=== PATIENT | male | born 1975 | race Caucasian/White ===

== ENCOUNTER 2021-05-13 17:17 | Inpatient (IN) | payer OTHER ==
[~2021-05-13] VITALS: Ht 188 cm; Wt 129.7 kg
--- NOTE | 2021-05-13 17:26 | NUR ---
ARRIVAL PT AMBULATED TO ED 4 ON OWN ACCORD, SEVERE RIGHT BACK PAIN NOTED, PT UNABLE TO VOID, C/O SEVERE PAIN RIGHT FLANK PAIN, PT ROLLING AROUND IN THE BED IN PAIN, C/O NAUSEA, DR ELIAS NOTIFED OF ARRIVAL, NEW ORDERS RECEIVED, IV STARTED AND LABS DRAWN
[2021-05-13] MEDS ORDERED: TORADOL ONE ×2 (17:40→17:41)
[2021-05-13] MEDS ORDERED: ZOFRAN ONE (17:40)
[2021-05-13] MEDS ORDERED: MORPHINE SULFATE ONE (17:41)
[2021-05-13 17:54] VITALS: BP_SYST 149; BP_SYST 159; BP_DIAS 115
[2021-05-13] MEDS ORDERED: TORADOL IV STA (17:55)
[2021-05-13] MEDS ORDERED: MORPHINE SULFATE IV STA (17:55)
[2021-05-13] MEDS ORDERED: ZOFRAN IV STA (17:55)
[2021-05-13 17:58] LABS: BASOPHIL # 0.1 10^3/uL (0.0-0.1); BASOPHIL % 0.4 % (0.0-0.2); EOSINOPHIL # 0.2 10^3/uL (0.0-0.2); EOSINOPHIL % 0.9 % (0.0-5.0); LYMPHOCYTES # 2.44 10^3/uL1 (1.0-4.8); LYMPHOCYTES % 15.3 % (24.0-44.0); MEAN CORP HGB 31.1 pg (26-34); MONOCYTES # 1.1 10^3/uL (0.3-0.8); NEUTROPHIL # 12.2 10^3/uL (1.8-7.7); PLATELET COUNT 393 10^3/uL (150-400); RED CELL DISTRIBUTION WIDTH 12.9 % (11.5-14.5)
[2021-05-13] MEDS ORDERED: NS 1000ML 1,000 ML IV ONE (18:00)
[2021-05-13] MEDS ORDERED: NS 1000ML 1,000 ML ONE (18:06)
--- NOTE | 2021-05-13 18:08 | DIREP ---
PROCEDURE:CHEST 1 VIEW COMPARISON:[facility], CR, XRAY CHEST 2 VWS, 01/16/2021, 11:41 AM. INDICATIONS:cp FINDINGS: LUNGS/PLEURA:No significant pulmonary parenchymal abnormalities. No effusions. VASCULATURE:Normal. Unremarkable pulmonary vasculature. CARDIAC:Normal. No cardiac silhouette abnormality or cardiomegaly. MEDIASTINUM:Normal. No visible mass or adenopathy. BONES:Lower cervical fusion hardware OTHER:Negative. CONCLUSION:No acute disease. Dictated by: Colton Malik MD on 05/13/2021 at 06:05 PM
[2021-05-13] MEDS ORDERED: DILAUDID ONE ×2 (18:10→19:35)
[2021-05-13 18:15] LABS: CALCIUM 9.5 mg/dL (8.4-10.5); CARBON DIOXIDE 28.3 mmol/L (20.0-32)
[2021-05-13 18:18] VITALS: BP 156/99
--- NOTE | 2021-05-13 18:22 | ER.PDOC ---
General Chief Complaint: Male Stated Complaint: BACK/ABD PAIN/MALE Time seen by MD: 18:00 Source: patient Exam Limitations: no limitations History of Present Illness Timing/Duration: 4-6 hours Severity/Quality: severe Radiation: RLQ, groin Associated Symptoms: back pain Exacerbated by: nothing Relieved By: nothing Allergies: Coded Allergies: bee venom protein (honey bee) (Verified Allergy, Severe, Swelling, 05/13/21) allergic to wasp sting Home Meds Active Scripts [Acetaminophen With Codeine] 1 EACH TABLET No Conflict Check, 1 EACH PO Q6H PRN for PAIN 4 - 6 for 5 Days, #20 Prov:SHAI TROTTER SENIOR FRONT END ENGINEER 05/16/21 Cefdinir (CEFDINIR) 300 Mg Capsule, 1 CAP PO BID, #20 CAP Prov:SHAI TROTTER SENIOR FRONT END ENGINEER 05/16/21 Vital Signs First Vital Signs Date Time Temp Pulse Resp B/P (MAP) Pulse Ox O2 Delivery O2 Flow Rate FiO2 05/13/21 17:54 98.0 58 22 100 05/13/21 17:54 159/115 (130) Room Air Last Vital Signs Date Time Temp Pulse Resp B/P (MAP) Pulse Ox O2 Delivery O2 Flow Rate FiO2 05/13/21 18:18 98.0 67 22 156/99 (118) 94 Room Air Past Medical History Medical History: other Surgical History: appendectomy Social History Alcohol Use: none Drug Use: none Reviewed Nursing Reviewed: Vital Signs, Abn. Noted All Other Systems: Reviewed and Negative Physical Exam General Appearance: No Apparent Distress, WD/WN HEENT: PERRL/EOMI, Normal ENT Inspection, TMs Normal, Pharynx Normal Neck: Non-Tender, Full Range of Motion, Supple, Normal Inspection Respiratory: chest non-tender, lungs clear, normal breath sounds, no respiratory distress, no accessory muscle use Cardiovascular: Normal Peripheral Pulses, Regular Rate, Rhythm, No Edema, No G allop, No JVD, No Murmur 1 - tender Male Genitalia: Normal Genitalia, Normal Prostate, No Hernia Back: CVA Tenderness (R) Extremities: Normal Range of Motion, Non-Tender, Normal Inspection, No Pedal Edema, No Calf Tenderness, Normal Capillary Refill, Pelvis Stable Neurologic/Psychiatric: chief informatics officer II-XII NML as Tested, No Motor/Sensory Deficits, Alert, Normal Mood/Affect, Oriented x 3 Skin: Normal Color, Warm/Dry Lymphatic: No Adenopathy Results/Orders Results/Orders Orders - GUEVARA ELIAS MD Cbc With Auto Diff (05/13/21 17:44) Comprehensive Metabolic Panel (05/13/21 17:44) Amylase (05/13/21 17:44) Lipase (05/13/21 17:44) Helicobacter Pylori (05/13/21 17:44) PT (05/13/21 17:44) Partial Thromboplastin Time. (05/13/21 17:44) Urinalysis (05/13/21 17:44) Saline Lock (05/13/21 17:44) Ct Abd/Pelvis Wo Iv Contrast (05/13/21 17:44) Xr Chest 1v (05/13/21 17:44) Ketorolac Tromethamine (Toradol) (05/13/21 17:55) Morphine Sulfate (Morphine Sulfate) (05/13/21 17:55) Ondansetron Hcl/Pf (Zofran) (05/13/21 17:55) 0.9 % Sodium Chloride (Ns 1000ml) (05/13/21 18:00) 0.9 % Sodium Chloride (Ns 1000ml) (05/13/21 18:06) Hydromorphone Hcl (Dilaudid) (05/13/21 18:10) Hydromorphone Hcl (Dilaudid) (05/13/21 18:23) Ceftriaxone Sodium (Rocephin) (05/13/21 19:30) Admit Orders (05/13/21 19:08) Bedrest With Brp (05/13/21 19:08) Scd's While In Bed (05/13/21 19:08) Hydromorphone Hcl (Dilaudid) (05/13/21 19:35) 0.9 % Sodium Chloride (Ns 100ml) (05/13/21 19:48) Ceftriaxone Sodium (Rocephin) (05/13/21 19:48) Vital Signs Date Time Temp Pulse Resp B/P (MAP) Pulse Ox O2 Delivery O2 Flow Rate FiO2 05/13/21 18:18 98.0 67 22 156/99 (118) 94 Room Air 05/13/21 17:54 98.0 58 22 159/115 (130) 100 Room Air 05/13/21 17:54 98.0 58 22 05/13/21 17:54 98.0 58 22 100 Laboratory Tests Test 05/13/21 17:26 05/13/21 17:40 Urine Collection Type UNKNOWN Urine Color YELLOW Urine Appearance CLEAR Urine Bilirubin NEGATIVE (NEGATIVE) Urine Ketones NEGATIVE (NEGATIVE) Urine Specific [place] >=1.030 (1.005-1.030) Urine pH 5.5 (4.5-8.0) Urine Protein 30 mg/dL (NEGATIVE) H Urine Urobilinogen 0.2 E.U./dL (0.2) Urine Nitrate NEGATIVE (NEGATIVE) Urine Leukocyte Esterase NEGATIVE (NEGATIVE) Urine Glucose (Auto)(UA) NEGATIVE (NEGATIVE) Urine Blood TRACE-INTACT (NEGATIVE) H Urine RBC 0-2 RBC/HPF (NONE SEEN) Urine WBC 0-2 WBC/HPF (0-2) Urine Squamous Epithelial Cells FEW #/HPF (FEW) Urine Bacteria FEW (NONE SEEN) H Urine Comment COMMENT: White Blood Count 16.0 10^3/uL (4.5-11.0) H Red Blood Count 5.31 10^6/uL (4.50-5.90) Hemoglobin 16.5 g/dL (13.9-16.3) H Hematocrit 48.6 % (37.0-53.0) Mean Corpuscular Volume 91.5 fL (78-100) Mean Corpuscular Hemoglobin 31.1 pg (26-34) Mean Corpuscular Hemoglobin Concent 34.0 g/dL (33-36.5) Red Cell Distribution Width 12.9 % (11.5-14.5) Platelet Count 393 10^3/uL (150-400) Mean Platelet Volume 8.8 fL (7.8-11.0) Neutrophils (%) (Auto) 76.0 % (41.0-85.0) Lymphocytes (%) (Auto) 15.3 % (24.0-44.0) L Monocytes (%) (Auto) 7.0 % (5.0-12.0) Neutrophils # (Auto) 12.2 10^3/uL (1.8-7.7) H Lymphocytes # (Auto) 2.44 10^3/uL1 (1.0-4.8) Monocytes # (Auto) 1.1 10^3/uL (0.3-0.8) H Absolute Immature Granulocyte (auto 0.06 10^3 u/L (0-2) Absolute Eosinophils (auto) 0.2 10^3/uL (0.0-0.2) Immature Granulocytes % 0.40 % (0.00-0.50) Eosinophils % 0.9 % (0.0-5.0) Basophils % 0.4 % (0.0-0.2) H Basophils # 0.1 10^3/uL (0.0-0.1) Prothrombin Time 10.9 SEC (9.6-12.0) Prothrombin Time INR (Non-Therap) 1.0 Activated Partial Thromboplast Time 27.2 SEC (24.67-30.72) Sodium Level 137 mmol/L (132-145) Potassium Level 3.9 mmol/L (3.6-5.2) Chloride Level 100.0 mmol/L (96-109) Carbon Dioxide Level 28.3 mmol/L (20.0-32) Anion Gap 12.6 Blood Urea Nitrogen 17 mg/dL (7-18) Creatinine 1.64 mg/dL (0.59-1.40) H Estimated GFR () 55.8 (>/=60) Est GFR (CKD-EPI)(Non-Afr Croatian) 46.1 (>/=60) BUN/Creatinine Ratio 10.0 Glucose Level 176 mg/dL (70-110) H Calcium Level 9.5 mg/dL (8.4-10.5) Total Bilirubin 0.5 mg/dL (0.2-1.0) Aspartate Amino Transferase (AST) 36 U/L (0-35) H Alanine Aminotransferase (ALT) 79 U/L (12-78) H Alkaline Phosphatase 114 U/L (50-136) Total Protein 8.6 g/dL (6.4-8.2) H Albumin 4.6 g/dL (3.4-5.0) Globulin 4.0 Albumin/Globulin Ratio 1.150 Amylase Level 58 U/L (25-115) Lipase 67 U/L (114-286) L Helicobacter pylori Screen POSITIVE (NEGATIVE) Microbiology Date/Time Source Procedure Growth Status 05/13/21 17:26 Urine Unknown Urine Culture - Final Complete Progress Progress to dr horn ER DEPART Departure Time of Disposition: 19:00 Disposition: 09 ADMITTED INPATIENT Impression: Primary Impression: Calculus of ureter Condition: Improved Referrals: PCP,UNKNOWN (PCP) PRIMARY CARE PROVIDER Scripts [Acetaminophen With Codeine] 1 EACH TABLET No Conflict Check 1 EACH PO Q6H PRN for PAIN 4 - 6 for 5 Days, #20 Prov: SHAI TROTTER NP 05/16/21 Cefdinir (CEFDINIR) 300 Mg Capsule 1 CAP PO BID, #20 CAP Prov: SHAI TROTTER NP 05/16/21 Duration or Time Spent with Pa: GUEVARA CASTILLO MD May 13, 2021 18:22
[2021-05-13] MEDS ORDERED: DILAUDID IV STA (18:23)
--- NOTE | 2021-05-13 18:23 | NUR ---
CT TO CT
--- NOTE | 2021-05-13 18:53 | DIREP ---
PROCEDURE:CT ABDOMEN/PELVIS W/O CONTRAST COMPARISON:None. INDICATIONS:r flanking TECHNIQUE:Axial images were created through the abdomen and pelvis without intravenous contrast material. No oral contrast was administered. Sagittal and coronal reconstructions were performed from source images. FINDINGS: LUNG BASES:Atelectatic changes at the lung bases. LIVER:Normal. No significant liver lesions are identified. BILIARY:Several gallstones in the lumen of the gallbladder without evidence for gallbladder wall thickening or pericholecystic fluid. PANCREAS:Normal. No lesion, fluid collection, ductal dilatation, or atrophy. SPLEEN:Normal. No enlargement or focal lesion. ADRENALS:Normal. No mass or enlargement. URINARY TRACT:There is an obstructing 0.8 x 0.4 cm calculus in the left mid pelvic ureter best seen on image 85 of series 2. There is mild right-sided hydronephrosis and hydroureter. Multiple bilateral renal calculi are seen measuring up to 4 mm in size. AORTA/VASCULAR:Normal. No aneurysm. RETROPERITONEUM:Normal. No mass or adenopathy. BOWEL/MESENTERY:The appendix is not visualized. There is no intestinal obstruction, free fluid, free air or mesenteric inflammatory changes. ABDOMINAL WALL:Normal. No mass or hernia. PELVIC ORGANS:Normal. No visible mass. Pelvic organs appropriate for patient age. BONES:Normal for age. No bony lesion or acute fracture. OTHER:Negative. CONCLUSION: 1. Obstructing 8 x 4 mm calculus in the right mid pelvic ureter best seen on image 85 of series 2 with mild right-sided hydronephrosis. 2. Cholelithiasis. 3. Tiny fat containing periumbilical hernia. Dictated by: Colton Malik MD on 05/13/2021 at 06:45 PM
[2021-05-13] MEDS ORDERED: DILAUDID IV PRN ×2 (19:30→22:30)
[2021-05-13] MEDS ORDERED: ROCEPHIN ONE (19:48)
[2021-05-13] MEDS ORDERED: NS 100ML 100 ML IV ONE (19:48)
[2021-05-13] MEDS: ROCEPHIN 1,000 MG in NS 100ML 100 ML IV SCH (19:58)
[2021-05-13] MEDS: NS 1000ML 1,000 ML IV SCH (20:30)
[2021-05-13 20:34] VITALS: BP 153/98
--- NOTE | 2021-05-13 20:35 | PCM.HP ---
History of Present Illness Reason for Visit: Right flank pain History of Present Illness 45-year-old male with history of kidney stones presenting with severe right flank pain. Work-up in the emergency room patient was found to have large right ureter stone. Also was found to have elevated creatinine. Urologist consulted. Start IV fluids and IV antibiotic. Patient is being admitted hospital for further management. Past Medical History Renal/: Other (Kidney stone) Past Surgical History: No pertinent hx Past Social History Alcohol: none Drugs: None Review of Systems Constitutional: No: Fever, Chills Eyes: No: Pain, Vision change ENT: No: Ear pain, Ear discharge Respiratory: No: Cough, Shortness of breath Cardiovascular: No: Chest Pain, Palpitations Gastrointestinal: Nausea Genitourinary: Other Musculoskeletal: No: shoulder pain Skin: No: Lesions, Jaundice Neurological: No: Weakness, Numbness Allergies: Coded Allergies: bee venom protein (honey bee) (Verified Allergy, Severe, Swelling, 05/13/21) allergic to wasp sting VTE VTE Risk Score VTE Risk: Score 0-1 = Low Risk (Aggressive mobilization; early ambulation; no VTE prophylaxis required) Score 2: Moderate Risk (Intermittent/Pneumatic Compression Device OR Lovenox/Heparin/Coumadin) Score 3-4: High Risk (Intermittent/Pneumatic Compression Device AND Lovenox/Heparin/Coumadin) Score > or =5: Highest Risk (Intermittent/Pneumatic Compression Device AND Lovenox/Heparin/Coumadin) Exam Vital Signs Vital Signs Date Time Temp Pulse Resp B/P (MAP) Pulse Ox O2 Delivery O2 Flow Rate FiO2 05/13/21 18:18 98.0 67 22 156/99 (118) 94 Room Air General Appearance: Alert, Oriented X3 HEENT: Atraumatic, PERRLA Respiratory: Clear to auscultation, Normal air movement Cardiovascular: Regular rate, Normal S1, Normal S2 Abdominal: Normal bowel sounds, Soft, Other (Right flank tenderness) Extremities: No clubbing, No cyanosis Skin: No rash, No breakdown Neuro: Normal speech Psych/Mental Status: Mental status NL, Mood NL Assessment/Plan Assessment/Plan Problems: (1) DAMIÁN (acute kidney injury) ICD Code: N17.9 - Acute kidney failure, unspecified SNOMED: 2598757, 86116789 (2) Right ureteral stone ICD Code: N20.1 - Calculus of ureter SNOMED: 30105402 Plan admit NPO after MN Urology consulted IVFs monitor kidney function and urine output Pain management DVT prophylaxis early ambulattion Reconcile home meds ELOS 1 MN if stable and cleared by urology ARIANA ENNIS MD May 13, 2021 20:35
[2021-05-13 21:15] LABS: BILIRUBIN,URINE NEGATIVE (NEGATIVE); UROBILINOGEN,URINE 0.2 E.U./dL (0.2)
[2021-05-13] MEDS: MORPHINE SULFATE SL PRN ×2 (22:13→22:44)
[2021-05-13] MEDS: ZOFRAN IV PRN (23:07)
[2021-05-14] VITALS (11 sets, daily range): BP systolic 142–189; BP diastolic 90–221
[2021-05-14] MEDS ORDERED: MORPHINE SULFATE ONE ×5 (01:21→20:12)
[2021-05-14] MEDS: MORPHINE SULFATE IV PRN ×5 (01:25→20:30)
[2021-05-14] MEDS: NS 1000ML 1,000 ML IV SCH ×3 (04:30→20:30)
[2021-05-14] MEDS: ZOFRAN IV PRN ×2 (05:00→12:01)
--- NOTE | 2021-05-14 06:02 | NUR ---
patient reported pressure pain on right flank and feels like he has been kicked on the testicles. Also painful discomfort at the penis. rates testicular pain at 4/10. Dr. Guerra heating pad applied to flank.
[2021-05-14 06:10] LABS: BASOPHIL # 0.1 10^3/uL (0.0-0.1); BASOPHIL % 0.4 % (0.0-0.2); EOSINOPHIL # 0.1 10^3/uL (0.0-0.2); EOSINOPHIL % 0.8 % (0.0-5.0); LYMPHOCYTES # 2.08 10^3/uL1 (1.0-4.8); LYMPHOCYTES % 15.4 % (24.0-44.0); MEAN CORP HGB 31.8 pg (26-34); MONOCYTES # 1.4 10^3/uL (0.3-0.8); MONOCYTES % 10.1 % (5.0-12.0); NEUTROPHIL # 9.9 10^3/uL (1.8-7.7); NEUTROPHILS % 73.3 % (41.0-85.0); PLATELET COUNT 350 10^3/uL (150-400); RED CELL DISTRIBUTION WIDTH 12.9 % (11.5-14.5)
--- NOTE | 2021-05-14 06:53 | NUR ---
patient is off unit to OR
[2021-05-14] MEDS ORDERED: XYLOCAINE 2% 5ML VIAL ONE (07:02)
[2021-05-14] MEDS ORDERED: TORADOL ONE (07:03)
[2021-05-14] MEDS ORDERED: PHENERGAN ONE (07:03)
[2021-05-14] MEDS ORDERED: DECADRON ONE (07:03)
[2021-05-14] MEDS ORDERED: ROCURONIUM BROMIDE IV ONE (07:03)
[2021-05-14] MEDS ORDERED: SUBLIMAZE ONE (07:03)
[2021-05-14] MEDS ORDERED: QUELICIN ONE (07:03)
[2021-05-14] MEDS ORDERED: ZOFRAN ONE (07:03)
[2021-05-14] MEDS ORDERED: DIPRIVAN IV ONE (07:04)
--- NOTE | 2021-05-14 07:22 | NUR ---
Report received, pt off unit for procedure.
[2021-05-14] MEDS ORDERED: LEVAQUIN 100 ML IV ONE ×2 (07:39→11:00)
[2021-05-14 08:15] LABS: CALCIUM 9.2 mg/dL (8.4-10.5); CARBON DIOXIDE 28.7 mmol/L (20.0-32)
--- NOTE | 2021-05-14 08:33 | OPH ---
DATE OF SURGERY: 05/14/2021 DICTATOR NAME: Terry Gutierrez MD PREOPERATIVE DIAGNOSIS: Large calculus in the right lower ureter. FINAL DIAGNOSIS: Large calculus in the right lower ureter. PROCEDURE PERFORMED: Cystoscopy, right retrograde, right ureteroscopy with stone manipulation and insertion of double-J right ureteral stent. DESCRIPTION OF PROCEDURE: The patient was brought to the cystoscopy room, was put in supine position on the cystoscopy table. After the patient was given a satisfactory and adequate endotracheal general anesthesia, the patient was then placed in the lithotomy position. The genitalia were then prepped and draped aseptically in the usual manner. First, a 23-Khmer cystoscope was inserted per urethra up to the bladder and the bladder was inspected and there was no tumor, no calculi, no ulcerations seen. Both ureteral orifices were normal. Initially the guidewire was tried to be inserted in the right ureteral orifice, but it would not go up because of the mild angulation of the distal ureter. So, at this juncture, the cystoscope was removed and a 7-Khmer semirigid ureteroscope was inserted per urethra up to the bladder was inserted to the right ureteral orifice and was able to change the angle of the orifice and was able to put the Glidewire all the way to the right kidney. After putting the Glidewire, the ureteroscope was then removed from the Glidewire and then reinserted into the right ureteral orifice and there was a stone that was large which was impacted at the right lower ureter. The ureteroscope was then removed and then a 6-Khmer double-J right ureteral stent was inserted through the Glidewire by the means of fluoroscopy all the way to the right renal pelvis and after proper positioning of the right indwelling ureteral stent, the Glidewire was removed and the cystoscope was inserted into the bladder and the bladder was emptied with water. Procedure was then terminated. The instrument was removed. The patient was then awakened, was transferred to the recovery room in stable condition. Terry Gutierrez MD DR: STEFFANIE COWART: [phone] RECEIPT: [id number]
--- NOTE | 2021-05-14 08:36 | CNH ---
DATE OF CONSULTATION: 05/14/2021 DICTATOR NAME: Terry Gutierrez MD This is a 45-year-old white male who was admitted to the hospital last night from the Emergency Room because of severe right flank pain. Noncontrast CT scan revealed an 8 mm stone in the right lower ureter. The patient was examined today. He still has some pain in the right flank with right CVA tenderness. The white count last night was 16,000 plus. Case was discussed. The patient has a history of also kidney stone. Case was discussed with the patient. I am going to do a cystoscopy, right retrograde with stent insertion this morning. Terry Gutirerez MD DR: ALEXA TID: [id number] RECEIPT: [id number]
[2021-05-14] MEDS ORDERED: APRESOLINE IV PRN (09:00)
--- NOTE | 2021-05-14 09:20 | NUR ---
Pt arrived back to unit, resting in bed, drowsy, easily aroused to sound. Pt appears to be in no apparent distress. Safety and comfort measures are in place.
[2021-05-14] MEDS ORDERED: LACTATED RINGERS 1,000 ML IV SCH (09:30)
--- NOTE | 2021-05-14 12:18 | PRM.PN ---
Subjective Subjective Date: May 14, 2021 Time: 07:00 Subjective Still complaining of right flank pain. Review of Systems Constitutional: No: Fever, Chills Eyes: No: Pain, Vision change ENT: No: Ear pain, Ear discharge Respiratory: No: Cough, Shortness of breath Cardiovascular: No: Chest Pain, Palpitations Gastrointestinal: Nausea Genitourinary: Other Musculoskeletal: No: shoulder pain Skin: No: Lesions, Jaundice Neurological: No: Weakness, Numbness Allergies: Coded Allergies: bee venom protein (honey bee) (Verified Allergy, Severe, Swelling, 05/13/21) allergic to wasp sting Objective Vitals and I/O Vital Sign - Last 24 Hours 05/13/21 05/13/21 05/13/21 05/13/21 17:54 17:54 17:54 18:18 Temp 98.0 98.0 98.0 98.0 Pulse 58 58 58 67 Resp B/P (MAP) 159/115 (130) 156/99 (118) Pulse Ox 100 100 94 O2 Delivery Room Air Room Air 05/13/21 05/13/21 05/14/21 05/14/21 20:34 21:59 00:00 00:18 Temp 98.0 98.2 97.9 Pulse 55 81 60 Resp 20 20 19 B/P (MAP) 153/98 (116) 161/101 (121) Pulse Ox 96 97 97 O2 Delivery Room Air Room Air 05/14/21 05/14/21 05/14/21 05/14/21 00:20 06:17 08:20 08:20 Temp 97.8 99.2 Pulse 58 87 Resp 19 16 B/P (MAP) 174/100 (124) 161/114 (130) Pulse Ox 99 100 O2 Delivery Room Air Non-Rebreather O2 Flow Rate 9 05/14/21 05/14/21 05/14/21 05/14/21 08:30 08:40 08:50 08:52 Pulse 75 88 90 91 Resp 16 16 16 16 B/P (MAP) 159/107 (124) 161/111 (128) 189/221 (210) 158/121 (133) Pulse Ox 100 100 100 100 O2 Delivery Non-Rebreather Room Air Room Air Room Air O2 Flow Rate 05/14/21 05/14/21 10:54 11:23 Temp 98.2 Pulse 69 Resp 17 B/P (MAP) 151/93 (112) Pulse Ox 95 O2 Delivery Room Air Intake and Output 05/14/21 07:00 Intake Total 236 ml Balance 236 ml General: Alert, Oriented X3 HEENT: Atraumatic, PERRLA Lungs: Clear to auscultation, Normal air movement Heart: Regular rate, Normal S1, Normal S2 Abdomen: Normal bowel sounds, Soft, Other (Right flank tenderness) Extremities: No clubbing, No cyanosis Neuro: Normal speech Psych/Mental Status: Mental status NL, Mood NL All Results(Lab/Rad) Laboratory Tests Test 05/13/21 17:26 05/13/21 17:40 05/14/21 05:13 Urine Collection Type UNKNOWN Urine Color YELLOW Urine Appearance CLEAR Urine Bilirubin NEGATIVE Urine Ketones NEGATIVE Urine Specific [place] >=1.030 Urine pH 5.5 Urine Protein 30 mg/dL Urine Urobilinogen 0.2 E.U./dL Urine Nitrate NEGATIVE Urine Leukocyte Esterase NEGATIVE Urine Glucose (Auto)(UA) NEGATIVE Urine Blood TRACE-INTACT Urine RBC 0-2 RBC/HPF Urine WBC 0-2 WBC/HPF Urine Squamous Epithelial Cells FEW #/HPF Urine Bacteria FEW Urine Comment COMMENT: White Blood Count 16.0 10^3/uL 13.6 10^3/uL Red Blood Count 5.31 10^6/uL 5.19 10^6/uL Hemoglobin 16.5 g/dL 16.5 g/dL Hematocrit 48.6 % 47.9 % Mean Corpuscular Volume 91.5 fL 92.3 fL Mean Corpuscular Hemoglobin 31.1 pg 31.8 pg Mean Corpuscular Hemoglobin Concent 34.0 g/dL 34.4 g/dL Red Cell Distribution Width 12.9 % 12.9 % Platelet Count 393 10^3/uL 350 10^3/uL Mean Platelet Volume 8.8 fL 9.1 fL Neutrophils (%) (Auto) 76.0 % 73.3 % Lymphocytes (%) (Auto) 15.3 % 15.4 % Monocytes (%) (Auto) 7.0 % 10.1 % Neutrophils # (Auto) 12.2 10^3/uL 9.9 10^3/uL Lymphocytes # (Auto) 2.44 10^3/uL1 2.08 10^3/uL1 Monocytes # (Auto) 1.1 10^3/uL 1.4 10^3/uL Absolute Immature Granulocyte (auto 0.06 10^3 u/L 0.05 10^3 u/L Absolute Eosinophils (auto) 0.2 10^3/uL 0.1 10^3/uL Immature Granulocytes % 0.40 % 0.40 % Eosinophils % 0.9 % 0.8 % Basophils % 0.4 % 0.4 % Basophils # 0.1 10^3/uL 0.1 10^3/uL Prothrombin Time 10.9 SEC Prothrombin Time INR (Non-Therap) 1.0 Activated Partial Thromboplast Time 27.2 SEC Sodium Level 137 mmol/L 137 mmol/L Potassium Level 3.9 mmol/L 4.2 mmol/L Chloride Level 100.0 mmol/L 102.0 mmol/L Carbon Dioxide Level 28.3 mmol/L 28.7 mmol/L Anion Gap 12.6 10.5 Blood Urea Nitrogen 17 mg/dL 18 mg/dL Creatinine 1.64 mg/dL 1.73 mg/dL Estimated GFR () 55.8 52.4 Est GFR (CKD-EPI)(Non-Afr Chilean) 46.1 43.3 BUN/Creatinine Ratio 10.0 10.0 Glucose Level 176 mg/dL 108 mg/dL Calcium Level 9.5 mg/dL 9.2 mg/dL Total Bilirubin 0.5 mg/dL Aspartate Amino Transf (AST/SGOT) 36 U/L Alanine Aminotransferase (ALT/SGPT) 79 U/L Alkaline Phosphatase 114 U/L Total Protein 8.6 g/dL Albumin 4.6 g/dL Globulin 4.0 Albumin/Globulin Ratio 1.150 Amylase Level 58 U/L Lipase 67 U/L Helicobacter pylori Screen POSITIVE Current Medications Medications (Trade) Dose Ordered Sig/Karo Route PRN Reason Start Time Stop Time Status Last Admin Dose Admin Ondansetron HCl (Zofran) 4 mg STK-MED ONCE .ROUTE 05/13/21 17:40 05/13/21 17:41 DC Ketorolac Tromethamine (Toradol) 30 mg STK-MED ONCE .ROUTE 05/13/21 17:40 05/13/21 17:41 DC Morphine Sulfate (Morphine Sulfate) 4 mg STK-MED ONCE .ROUTE 05/13/21 17:41 05/13/21 17:41 DC Ketorolac Tromethamine (Toradol) 30 mg STK-MED ONCE .ROUTE 05/13/21 17:41 05/13/21 17:42 DC Ketorolac Tromethamine (Toradol) 30 mg STAT STAT IV 05/13/21 17:55 05/13/21 17:56 DC 05/13/21 18:04 Morphine Sulfate (Morphine Sulfate) 4 mg STAT STAT IV 05/13/21 17:55 05/13/21 17:56 DC 05/13/21 18:03 Ondansetron HCl (Zofran) 4 mg STAT STAT IV 05/13/21 17:55 05/13/21 17:56 DC 05/13/21 18:05 Sodium Chloride 1,000 ml @ 0 mls/hr Q0M ONCE IV 05/13/21 18:00 05/13/21 18:01 DC 05/13/21 18:05 Sodium Chloride 1,000 ml @ ud STK-MED ONCE .ROUTE 05/13/21 18:06 05/13/21 18:07 DC Hydromorphone HCl (Dilaudid) 2 mg STK-MED ONCE .ROUTE 05/13/21 18:10 05/13/21 18:10 DC Hydromorphone HCl (Dilaudid) 2 mg STAT STAT IV 05/13/21 18:23 05/13/21 18:24 DC 05/13/21 18:25 Ceftriaxone Sodium 1000 mg/ Sodium Chloride 100 ml @ 100 mls/hr Q24HRS IV 05/13/21 19:30 06/12/21 19:29 05/13/21 19:58 Hydromorphone HCl (Dilaudid) 2 mg Q4H PRN IV PAIN 7 - 10 05/13/21 19:30 05/13/21 20:29 DC 05/13/21 19:40 Sodium Chloride 100 ml @ ud STK-MED ONCE IV 05/13/21 19:48 05/13/21 19:48 DC Ceftriaxone Sodium (Rocephin) 1,000 mg STK-MED ONCE .ROUTE 05/13/21 19:48 05/13/21 19:48 DC Morphine Sulfate (Morphine Sulfate) 2 mg Q4H PRN SL PAIN 7 - 10 05/13/21 20:30 06/12/21 20:29 05/13/21 22:13 Sodium Chloride 1,000 ml @ 125 mls/hr Q8H IV 05/13/21 20:30 06/12/21 20:29 05/14/21 04:30 Ondansetron HCl (Zofran) 4 mg Q4H PRN IV NAUSEA / VOMITING 05/13/21 20:30 06/12/21 20:29 05/14/21 12:01 Hydromorphone HCl (Dilaudid) 2 mg STK-MED ONCE .ROUTE 05/13/21 19:35 05/13/21 20:29 DC Hydromorphone HCl (Dilaudid) 1 mg Q4H PRN IV PAIN 7 - 10 05/13/21 22:30 05/13/21 22:45 DC 05/13/21 22:44 Morphine Sulfate (Morphine Sulfate) 4 mg Q4H PRN IV PAIN 7 - 10 05/13/21 22:30 06/12/21 22:29 05/14/21 11:54 Morphine Sulfate (Morphine Sulfate) 2 mg STK-MED ONCE .ROUTE 05/14/21 01:21 05/14/21 01:21 DC Morphine Sulfate (Morphine Sulfate) 2 mg STK-MED ONCE .ROUTE 05/14/21 04:44 05/14/21 04:44 DC Lidocaine HCl (Xylocaine 2% 5ml Vial) 500 mg STK-MED ONCE .ROUTE 05/14/21 07:02 05/14/21 07:03 DC Promethazine HCl (Phenergan) 25 mg STK-MED ONCE .ROUTE 05/14/21 07:03 05/14/21 07:03 DC Ketorolac Tromethamine (Toradol) 30 mg STK-MED ONCE .ROUTE 05/14/21 07:03 05/14/21 07:03 DC Ondansetron HCl (Zofran) 4 mg STK-MED ONCE .ROUTE 05/14/21 07:03 05/14/21 07:03 DC Rocuronium [place] (Rocuronium [place]) 50 mg STK-MED ONCE IV 05/14/21 07:03 05/14/21 07:03 DC Succinylcholine Chloride (Quelicin) 200 mg STK-MED ONCE .ROUTE 05/14/21 07:03 05/14/21 07:04 DC Fentanyl Citrate (Sublimaze) 50 mcg STK-MED ONCE .ROUTE 05/14/21 07:03 05/14/21 07:04 DC Propofol (Diprivan) 200 mg STK-MED ONCE IV 05/14/21 07:04 05/14/21 07:04 DC Levofloxacin/ Dextrose 100 ml @ ud STK-MED ONCE IV 05/14/21 07:39 05/14/21 07:39 DC Hydralazine HCl (Apresoline) 10 mg Q4HR PRN IV HYPERTENSION 05/14/21 09:00 06/13/21 08:59 Levofloxacin/ Dextrose 100 ml @ 100 mls/hr OT ONCE IV 05/14/21 11:00 05/14/21 11:59 DC 05/14/21 07:42 Morphine Sulfate (Morphine Sulfate) 2 mg STK-MED ONCE .ROUTE 05/14/21 11:53 05/14/21 11:53 DC Assessment/Plan Assessment/Plan Assessment/Plan admit NPO after MN Urology consulted IVFs monitor kidney function and urine output Pain management DVT prophylaxis early ambulattion Reconcile home meds ELOS 1 MN if stable and cleared by urology Problems: (1) DAMIÁN (acute kidney injury) ICD Code: N17.9 - Acute kidney failure, unspecified SNOMED: 0134001, 77737014 (2) Right ureteral stone ICD Code: N20.1 - Calculus of ureter SNOMED: 41398086 Plan admit Urologist consulted, for cystoscopy today. Continue IV fluids Continue to monitor kidney function urine output Pain management Antibiotic DVT prophylaxis early ambulation Further management as per urologist ARIANA ENNIS MD May 14, 2021 12:18
--- NOTE | 2021-05-14 12:53 | DIREP ---
PROCEDURE:XRAY UROGRAPHY RETROGRADE COMPARISON:[facility], CT, CT ABD/PELVIS W/O, 05/13/2021, 06:23 PM. INDICATIONS:RT UTEREAL STONE,10cc omni 240 used,7 images,76.49 mGy,147.4 sec fluoro TECHNIQUE:7 intraoperative digital images were obtained. FINDINGS:Fluoroscopic assistance was provided by the radiology department. The right ureteral calculus appears to have been extracted. A right ureteral stent was placed. CONCLUSION: 1. Fluoroscopic assistance provided by the radiology department. Please refer to operative report by Dr. Gutierrez. Dictated by: Arash Bender M.D. on 05/14/2021 at 12:50 PM
[2021-05-14] MEDS: ROCEPHIN 1,000 MG in NS 100ML 100 ML IV SCH (19:47)
[2021-05-15] VITALS (12 sets, daily range): BP systolic 136–188; BP diastolic 75–112
[2021-05-15] MEDS ORDERED: MORPHINE SULFATE ONE ×2 (00:16→05:07)
[2021-05-15] MEDS: ZOFRAN IV PRN (00:25)
[2021-05-15] MEDS: MORPHINE SULFATE IV PRN ×4 (00:34→21:24)
[2021-05-15] MEDS: NS 1000ML 1,000 ML IV SCH ×2 (04:30→07:47)
[2021-05-15 06:18] LABS: BASOPHIL % 0.3 % (0.0-0.2); EOSINOPHIL % 0.2 % (0.0-5.0); LYMPHOCYTES # 3.51 10^3/uL1 (1.0-4.8); LYMPHOCYTES % 22.7 % (24.0-44.0); MEAN CORP HGB 31.7 pg (26-34); MONOCYTES # 1.4 10^3/uL (0.3-0.8); MONOCYTES % 9.1 % (5.0-12.0); NEUTROPHIL # 10.5 10^3/uL (1.8-7.7); NEUTROPHILS % 67.7 % (41.0-85.0); PLATELET COUNT 339 10^3/uL (150-400); RED CELL DISTRIBUTION WIDTH 12.9 % (11.5-14.5)
[2021-05-15] MEDS ORDERED: TORADOL ONE (07:16)
[2021-05-15] MEDS ORDERED: ZOFRAN ONE (07:16)
[2021-05-15] MEDS ORDERED: BRIDION IV ONE (07:16)
[2021-05-15] MEDS ORDERED: DECADRON ONE (07:16)
[2021-05-15] MEDS ORDERED: QUELICIN ONE (07:17)
[2021-05-15] MEDS ORDERED: DIPRIVAN IV ONE (07:17)
[2021-05-15] MEDS ORDERED: EPHEDRINE SULFATE ONE (07:17)
[2021-05-15] MEDS ORDERED: ROCURONIUM BROMIDE IV ONE (07:17)
[2021-05-15] MEDS ORDERED: SUBLIMAZE ONE (07:17)
[2021-05-15] MEDS ORDERED: LEVAQUIN 100 ML IV ONE (08:29)
[2021-05-15] MEDS ORDERED: NS 1000ML 1,000 ML ONE (08:38)
--- NOTE | 2021-05-15 09:48 | OPH ---
DATE OF SURGERY: 05/15/2021 DICTATOR NAME: Terry Gutierrez MD PREOPERATIVE DIAGNOSIS: Calculus, right lower ureter with indwelling stent. FINAL DIAGNOSIS: Calculus, right lower ureter with indwelling stent. PROCEDURE: Right ESWL. DESCRIPTION OF PROCEDURE: The patient was brought to the lithotripsy room, was put in supine on the lithotripsy table. Fluoroscopy was initially performed to visualize the stone. It was noted there is a large calculus in the right lower ureter with indwelling stent. After the patient was given a satisfactory and adequate general anesthesia and after localization of the stone with the use of a fluoroscopy and ultrasound, a right ESWL was then performed to the calculus in the right lower ureter under fluoroscopy. After fragmentation of the stone as noted in the ultrasound, the procedure was terminated. A total of 2500 shockwaves were delivered to the stone in the right lower ureter. After fragmenting of the stones as noted in the ultrasound, the procedure was terminated. The patient was then awakened, was transferred to the recovery room in stable condition. Terry Gutierrez MD DR: CHRISTINA TID: [id number] RECEIPT: [id number]
[2021-05-15] MEDS ORDERED: LACTATED RINGERS 1,000 ML IV SCH (10:00)
[2021-05-15] MEDS ORDERED: ULTRAM PO PRN (10:30)
[2021-05-15] MEDS ORDERED: TYLENOL PO PRN (10:30)
--- NOTE | 2021-05-15 10:40 | PRM.PN ---
Subjective Subjective Date: May 15, 2021 Time: 10:00 Subjective No acute distress noted, status post lithotripsy this a.m. from urology patient just arrived back to the floor.No complaints VTE VTE Risk Total Score: 0 VTE Risk Score VTE Risk: Score 0-1 = Low Risk (Aggressive mobilization; early ambulation; no VTE prophylaxis required) Score 2: Moderate Risk (Intermittent/Pneumatic Compression Device OR Lovenox/Heparin/Coumadin) Score 3-4: High Risk (Intermittent/Pneumatic Compression Device AND Lovenox/Heparin/Coumadin) Score > or =5: Highest Risk (Intermittent/Pneumatic Compression Device AND Lovenox/Heparin/Coumadin) Review of Systems Constitutional: No: Fever, Chills, Sweats, Weakness, Malaise, Other Eyes: No: Pain, Vision change, Conjunctivae inflammation, Eyelid inflammation, Other, Redness ENT: No: Ear pain, Ear discharge, Nose pain, Nose discharge, Nose congestion, Mouth pain, Mouth swelling, Throat pain, Throat swelling, Other Respiratory: No: Cough, Shortness of breath Cardiovascular: No: Chest Pain, Palpitations, Orthopnea, Paroxysmal Noc. Dyspnea, Edema, Lt Headedness, Other Gastrointestinal: Abdominal Pain (Right); No: Nausea Genitourinary: Other (Improved right abdominal/flank pain) Musculoskeletal: No: other, neck pain, shoulder pain, arm pain, back pain, hand pain, leg pain, foot pain Skin: No: Rash, Lesions, Jaundice, Bruising, Other Neurological: No: Weakness, Numbness, Incoordination, Change in speech, Confusion, Seizures, Other Allergies: Coded Allergies: bee venom protein (honey bee) (Verified Allergy, Severe, Swelling, 05/13/21) allergic to wasp sting Objective Vitals and I/O Vital Sign - Last 24 Hours 05/14/21 05/14/21 05/14/21 05/14/21 10:54 11:23 16:21 19:10 Temp 98.2 97.6 Pulse 69 75 Resp 17 18 B/P (MAP) 151/93 (112) 157/104 (121) Pulse Ox 95 97 O2 Delivery Room Air Room Air 05/14/21 05/15/21 05/15/21 05/15/21 20:00 00:01 06:55 09:36 Temp 98.3 97.7 98.3 98.2 Pulse 88 80 76 96 Resp 16 16 16 16 B/P (MAP) 183/107 (132) 147/95 (112) 136/95 (109) 140/106 (117) Pulse Ox 93 94 95 95 O2 Delivery Non-Rebreather O2 Flow Rate 5 05/15/21 05/15/21 05/15/21 05/15/21 09:36 09:41 09:46 09:51 Pulse 88 79 82 Resp 16 16 16 B/P (MAP) 140/106 (117) 136/96 (109) 140/98 (112) Pulse Ox 95 95 95 O2 Delivery Nasal Canula Nasal Canula Nasal Canula O2 Flow Rate 5 2 2 1 05/15/21 05/15/21 05/15/21 05/15/21 09:56 10:01 10:06 10:06 Temp 97.5 Pulse 79 78 80 Resp 16 16 16 B/P (MAP) 145/95 (112) 151/101 (118) 147/100 (116) Pulse Ox 95 95 95 O2 Delivery Nasal [place] Nasal Canula Nasal [place]ula O2 Flow Rate 1 1 1 1 Intake and Output 05/15/21 07:00 Intake Total 1550 ml Output Total 2750 ml Balance -1200 ml General: Alert, Oriented X3 HEENT: Atraumatic, PERRLA Neck: Supple Lungs: Clear to auscultation, Normal air movement Heart: Regular rate, Normal S1, Normal S2 Abdomen: Normal bowel sounds, Soft, Other (Right flank tenderness) Extremities: No clubbing, No cyanosis, No edema Skin: No rashes, No breakdown Neuro: Normal speech, Strength at 5/5 X4 ext, Sensation intact Psych/Mental Status: Mental status NL, Mood NL All Results(Lab/Rad) Laboratory Tests Test 05/13/21 17:26 05/13/21 17:40 05/14/21 05:13 Urine Collection Type UNKNOWN Urine Color YELLOW Urine Appearance CLEAR Urine Bilirubin NEGATIVE Urine Ketones NEGATIVE Urine Specific [place] >=1.030 Urine pH 5.5 Urine Protein 30 mg/dL Urine Urobilinogen 0.2 E.U./dL Urine Nitrate NEGATIVE Urine Leukocyte Esterase NEGATIVE Urine Glucose (Auto)(UA) NEGATIVE Urine Blood TRACE-INTACT Urine RBC 0-2 RBC/HPF Urine WBC 0-2 WBC/HPF Urine Squamous Epithelial Cells FEW #/HPF Urine Bacteria FEW Urine Comment COMMENT: White Blood Count 16.0 10^3/uL 13.6 10^3/uL Red Blood Count 5.31 10^6/uL 5.19 10^6/uL Hemoglobin 16.5 g/dL 16.5 g/dL Hematocrit 48.6 % 47.9 % Mean Corpuscular Volume 91.5 fL 92.3 fL Mean Corpuscular Hemoglobin 31.1 pg 31.8 pg Mean Corpuscular Hemoglobin Concent 34.0 g/dL 34.4 g/dL Red Cell Distribution Width 12.9 % 12.9 % Platelet Count 393 10^3/uL 350 10^3/uL Mean Platelet Volume 8.8 fL 9.1 fL Neutrophils (%) (Auto) 76.0 % 73.3 % Lymphocytes (%) (Auto) 15.3 % 15.4 % Monocytes (%) (Auto) 7.0 % 10.1 % Neutrophils # (Auto) 12.2 10^3/uL 9.9 10^3/uL Lymphocytes # (Auto) 2.44 10^3/uL1 2.08 10^3/uL1 Monocytes # (Auto) 1.1 10^3/uL 1.4 10^3/uL Absolute Immature Granulocyte (auto 0.06 10^3 u/L 0.05 10^3 u/L Absolute Eosinophils (auto) 0.2 10^3/uL 0.1 10^3/uL Immature Granulocytes % 0.40 % 0.40 % Eosinophils % 0.9 % 0.8 % Basophils % 0.4 % 0.4 % Basophils # 0.1 10^3/uL 0.1 10^3/uL Prothrombin Time 10.9 SEC Prothrombin Time INR (Non-Therap) 1.0 Activated Partial Thromboplast Time 27.2 SEC Sodium Level 137 mmol/L 137 mmol/L Potassium Level 3.9 mmol/L 4.2 mmol/L Chloride Level 100.0 mmol/L 102.0 mmol/L Carbon Dioxide Level 28.3 mmol/L 28.7 mmol/L Anion Gap 12.6 10.5 Blood Urea Nitrogen 17 mg/dL 18 mg/dL Creatinine 1.64 mg/dL 1.73 mg/dL Estimated GFR () 55.8 52.4 Est GFR (CKD-EPI)(Non-Afr [place]) 46.1 43.3 BUN/Creatinine Ratio 10.0 10.0 Glucose Level 176 mg/dL 108 mg/dL Calcium Level 9.5 mg/dL 9.2 mg/dL Total Bilirubin 0.5 mg/dL Aspartate Amino Transf (AST/SGOT) 36 U/L Alanine Aminotransferase (ALT/SGPT) 79 U/L Alkaline Phosphatase 114 U/L Total Protein 8.6 g/dL Albumin 4.6 g/dL Globulin 4.0 Albumin/Globulin Ratio 1.150 Amylase Level 58 U/L Lipase 67 U/L Helicobacter pylori Screen POSITIVE Current Medications Medications (Trade) Dose Ordered Sig/Karo Route PRN Reason Start Time Stop Time Status Last Admin Dose Admin Ondansetron HCl (Zofran) 4 mg STK-MED ONCE .ROUTE 05/13/21 17:40 05/13/21 17:41 DC Ketorolac Tromethamine (Toradol) 30 mg STK-MED ONCE .ROUTE 05/13/21 17:40 05/13/21 17:41 DC Morphine Sulfate (Morphine Sulfate) 4 mg STK-MED ONCE .ROUTE 05/13/21 17:41 05/13/21 17:41 DC Ketorolac Tromethamine (Toradol) 30 mg STK-MED ONCE .ROUTE 05/13/21 17:41 05/13/21 17:42 DC Ketorolac Tromethamine (Toradol) 30 mg STAT STAT IV 05/13/21 17:55 05/13/21 17:56 DC 05/13/21 18:04 Morphine Sulfate (Morphine Sulfate) 4 mg STAT STAT IV 05/13/21 17:55 05/13/21 17:56 DC 05/13/21 18:03 Ondansetron HCl (Zofran) 4 mg STAT STAT IV 05/13/21 17:55 05/13/21 17:56 DC 05/13/21 18:05 Sodium Chloride 1,000 ml @ 0 mls/hr Q0M ONCE IV 05/13/21 18:00 05/13/21 18:01 DC 05/13/21 18:05 Sodium Chloride 1,000 ml @ ud STK-MED ONCE .ROUTE 05/13/21 18:06 05/13/21 18:07 DC Hydromorphone HCl (Dilaudid) 2 mg STK-MED ONCE .ROUTE 05/13/21 18:10 05/13/21 18:10 DC Hydromorphone HCl (Dilaudid) 2 mg STAT STAT IV 05/13/21 18:23 05/13/21 18:24 DC 05/13/21 18:25 Ceftriaxone Sodium 1000 mg/ Sodium Chloride 100 ml @ 100 mls/hr Q24HRS IV 05/13/21 19:30 06/12/21 19:29 05/13/21 19:58 Hydromorphone HCl (Dilaudid) 2 mg Q4H PRN IV PAIN 7 - 10 05/13/21 19:30 05/13/21 20:29 DC 05/13/21 19:40 Sodium Chloride 100 ml @ ud STK-MED ONCE IV 05/13/21 19:48 05/13/21 19:48 DC Ceftriaxone Sodium (Rocephin) 1,000 mg STK-MED ONCE .ROUTE 05/13/21 19:48 05/13/21 19:48 DC Morphine Sulfate (Morphine Sulfate) 2 mg Q4H PRN SL PAIN 7 - 10 05/13/21 20:30 06/12/21 20:29 05/13/21 22:13 Sodium Chloride 1,000 ml @ 125 mls/hr Q8H IV 05/13/21 20:30 06/12/21 20:29 05/14/21 04:30 Ondansetron HCl (Zofran) 4 mg Q4H PRN IV NAUSEA / VOMITING 05/13/21 20:30 06/12/21 20:29 05/14/21 12:01 Hydromorphone HCl (Dilaudid) 2 mg STK-MED ONCE .ROUTE 05/13/21 19:35 05/13/21 20:29 DC Hydromorphone HCl (Dilaudid) 1 mg Q4H PRN IV PAIN 7 - 10 05/13/21 22:30 05/13/21 22:45 DC 05/13/21 22:44 Morphine Sulfate (Morphine Sulfate) 4 mg Q4H PRN IV PAIN 7 - 10 05/13/21 22:30 06/12/21 22:29 05/14/21 11:54 Morphine Sulfate (Morphine Sulfate) 2 mg STK-MED ONCE .ROUTE 05/14/21 01:21 05/14/21 01:21 DC Morphine Sulfate (Morphine Sulfate) 2 mg STK-MED ONCE .ROUTE 05/14/21 04:44 05/14/21 04:44 DC Lidocaine HCl (Xylocaine 2% 5ml Vial) 500 mg STK-MED ONCE .ROUTE 05/14/21 07:02 05/14/21 07:03 DC Promethazine HCl (Phenergan) 25 mg STK-MED ONCE .ROUTE 05/14/21 07:03 05/14/21 07:03 DC Ketorolac Tromethamine (Toradol) 30 mg STK-MED ONCE .ROUTE 05/14/21 07:03 05/14/21 07:03 DC Ondansetron HCl (Zofran) 4 mg STK-MED ONCE .ROUTE 05/14/21 07:03 05/14/21 07:03 DC Rocuronium [place] (Rocuronium [place]) 50 mg STK-MED ONCE IV 05/14/21 07:03 05/14/21 07:03 DC Succinylcholine Chloride (Quelicin) 200 mg STK-MED ONCE .ROUTE 05/14/21 07:03 05/14/21 07:04 DC Fentanyl Citrate (Sublimaze) 50 mcg STK-MED ONCE .ROUTE 05/14/21 07:03 05/14/21 07:04 DC Propofol (Diprivan) 200 mg STK-MED ONCE IV 05/14/21 07:04 05/14/21 07:04 DC Levofloxacin/ Dextrose 100 ml @ ud STK-MED ONCE IV 05/14/21 07:39 05/14/21 07:39 DC Hydralazine HCl (Apresoline) 10 mg Q4HR PRN IV HYPERTENSION 05/14/21 09:00 06/13/21 08:59 Levofloxacin/ Dextrose 100 ml @ 100 mls/hr OT ONCE IV 05/14/21 11:00 05/14/21 11:59 DC 05/14/21 07:42 Morphine Sulfate (Morphine Sulfate) 2 mg STK-MED ONCE .ROUTE 05/14/21 11:53 05/14/21 11:53 DC Course Sepsis Screening Results: Posi: NEGATIVE Sepsis Qualifier/Stage: NO DEFINITE RISK Vitals & review Data Vital Sign - Last 24 Hours 05/14/21 05/14/21 05/14/21 05/14/21 10:54 11:23 16:21 19:10 Temp 98.2 97.6 Pulse 69 75 Resp 17 18 B/P (MAP) 151/93 (112) 157/104 (121) Pulse Ox 95 97 O2 Delivery Room Air Room Air 05/14/21 05/15/21 05/15/21 05/15/21 20:00 00:01 06:55 09:36 Temp 98.3 97.7 98.3 98.2 Pulse 88 80 76 96 Resp 16 16 16 16 B/P (MAP) 183/107 (132) 147/95 (112) 136/95 (109) 140/106 (117) Pulse Ox 93 94 95 95 O2 Delivery Non-Rebreather O2 Flow Rate 5 05/15/21 05/15/21 05/15/21 05/15/21 09:36 09:41 09:46 09:51 Pulse 88 79 82 Resp 16 16 16 B/P (MAP) 140/106 (117) 136/96 (109) 140/98 (112) Pulse Ox 95 95 95 O2 Delivery Nasal Canula Nasal Canula Nasal [place] O2 Flow Rate 5 2 2 1 05/15/21 05/15/21 05/15/21 05/15/21 09:56 10:01 10:06 10:06 Temp 97.5 Pulse 79 78 80 Resp 16 16 16 B/P (MAP) 145/95 (112) 151/101 (118) 147/100 (116) Pulse Ox 95 95 95 O2 Delivery Nasal [place] Nasal [place] Nasal [place] O2 Flow Rate 1 1 1 1 Intake and Output 05/15/21 07:00 Intake Total 1550 ml Output Total 2750 ml Balance -1200 ml Laboratory Tests Test 05/13/21 17:26 05/13/21 17:40 05/14/21 05:13 05/15/21 05:30 Urine Collection Type UNKNOWN Urine Color YELLOW Urine Appearance CLEAR Urine Bilirubin NEGATIVE Urine Ketones NEGATIVE Urine Specific [place] >=1.030 Urine pH 5.5 Urine Protein 30 mg/dL Urine Urobilinogen 0.2 E.U./dL Urine Nitrate NEGATIVE Urine Leukocyte Esterase NEGATIVE Urine Glucose (Auto)(UA) NEGATIVE Urine Blood TRACE-INTACT Urine RBC 0-2 RBC/HPF Urine WBC 0-2 WBC/HPF Urine Squamous Epithelial Cells FEW #/HPF Urine Bacteria FEW Urine Comment COMMENT: White Blood Count 16.0 10^3/uL 13.6 10^3/uL 15.5 10^3/uL Red Blood Count 5.31 10^6/uL 5.19 10^6/uL 4.92 10^6/uL Hemoglobin 16.5 g/dL 16.5 g/dL 15.6 g/dL Hematocrit 48.6 % 47.9 % 45.7 % Mean Corpuscular Volume 91.5 fL 92.3 fL 92.9 fL Mean Corpuscular Hemoglobin 31.1 pg 31.8 pg 31.7 pg Mean Corpuscular Hemoglobin Concent 34.0 g/dL 34.4 g/dL 34.1 g/dL Red Cell Distribution Width 12.9 % 12.9 % 12.9 % Platelet Count 393 10^3/uL 350 10^3/uL 339 10^3/uL Mean Platelet Volume 8.8 fL 9.1 fL 8.9 fL Neutrophils (%) (Auto) 76.0 % 73.3 % 67.7 % Lymphocytes (%) (Auto) 15.3 % 15.4 % 22.7 % Monocytes (%) (Auto) 7.0 % 10.1 % 9.1 % Neutrophils # (Auto) 12.2 10^3/uL 9.9 10^3/uL 10.5 10^3/uL Lymphocytes # (Auto) 2.44 10^3/uL1 2.08 10^3/uL1 3.51 10^3/uL1 Monocytes # (Auto) 1.1 10^3/uL 1.4 10^3/uL 1.4 10^3/uL Absolute Immature Granulocyte (auto 0.06 10^3 u/L 0.05 10^3 u/L 0.03 10^3 u/L Absolute Eosinophils (auto) 0.2 10^3/uL 0.1 10^3/uL 0.0 10^3/uL Immature Granulocytes % 0.40 % 0.40 % 0.20 % Eosinophils % 0.9 % 0.8 % 0.2 % Basophils % 0.4 % 0.4 % 0.3 % Basophils # 0.1 10^3/uL 0.1 10^3/uL 0.0 10^3/uL Prothrombin Time 10.9 SEC Prothrombin Time INR (Non-Therap) 1.0 Activated Partial Thromboplast Time 27.2 SEC Sodium Level 137 mmol/L 137 mmol/L Potassium Level 3.9 mmol/L 4.2 mmol/L Chloride Level 100.0 mmol/L 102.0 mmol/L Carbon Dioxide Level 28.3 mmol/L 28.7 mmol/L Anion Gap 12.6 10.5 Blood Urea Nitrogen 17 mg/dL 18 mg/dL Creatinine 1.64 mg/dL 1.73 mg/dL Estimated GFR () 55.8 52.4 Est GFR (CKD-EPI)(Non-Afr [place]) 46.1 43.3 BUN/Creatinine Ratio 10.0 10.0 Glucose Level 176 mg/dL 108 mg/dL Calcium Level 9.5 mg/dL 9.2 mg/dL Total Bilirubin 0.5 mg/dL Aspartate Amino Transf (AST/SGOT) 36 U/L Alanine Aminotransferase (ALT/SGPT) 79 U/L Alkaline Phosphatase 114 U/L Total Protein 8.6 g/dL Albumin 4.6 g/dL Globulin 4.0 Albumin/Globulin Ratio 1.150 Amylase Level 58 U/L Lipase 67 U/L Helicobacter pylori Screen POSITIVE Procalcitonin < 0.05 ng/mL Current Medications Medications (Trade) Dose Ordered Sig/Karo PRN Reason Start Time Stop Time Status Last Admin Ceftriaxone Sodium 1000 mg/ Sodium Chloride 100 ml @ 100 mls/hr Q24HRS 05/13/21 19:30 06/12/21 19:29 05/14/21 19:47 Hydralazine HCl (Apresoline) 10 mg Q4HR PRN HYPERTENSION 05/14/21 09:00 06/13/21 08:59 Morphine Sulfate (Morphine Sulfate) 2 mg Q4H PRN PAIN 7 - 10 05/13/21 20:30 06/12/21 20:29 05/13/21 22:13 Morphine Sulfate (Morphine Sulfate) 4 mg Q4H PRN PAIN 7 - 10 05/13/21 22:30 06/12/21 22:29 05/15/21 05:34 Ondansetron HCl (Zofran) 4 mg Q4H PRN NAUSEA / VOMITING 05/13/21 20:30 06/12/21 20:29 05/15/21 00:25 Sodium Chloride 1,000 ml @ 125 mls/hr Q8H 05/13/21 20:30 06/12/21 20:29 05/14/21 14:45 LEVEL 1 SEPSIS INFECTION CRITE: None/Not assessed LEVEL 2-SIRS (LIST ALL THAT AP: None/Not assessed O2 Sat by Pulse Oximetry: 95 Oxygen Flow Rate: 1 Assessment/Plan Assessment/Plan Assessment/Plan 45-year-old male presented to ED initially with right-sided severe CVA tenderness noncontrast CT revealed a 8 mm stone in the right lower ureter. Consultation to urology for cystoscopy, Stent placed unable to retrieve subsequent lithotripsy this a.m. completed. Trending up leukocytosis as well as mild elevation in creatinine for decrease in renal function continue IV fluid therapy and antimicrobial therapy. Likely DC in a.m. Problems: (1) DAMIÁN (acute kidney injury) Status: Acute Assessment & Plan: Unable to glean any chronic renal data. Increase in creatinine to 1.7 today continue IV fluid therapy avoid nephrotoxic agents continue to monitor renal function. Likely DC in a.m. if renal function trending or normalizing. ICD Code: N17.9 - Acute kidney failure, unspecified SNOMED: 4252372, [id number] (2) Right ureteral stone Status: Acute Assessment & Plan: Consultation to urology much appreciated failed cystoscopy with stent placement and subsequent lithotripsy for disintegration of calculus complete. Continue antimicrobial therapy including ceftriaxone patient did receive 1 dose of Levaquin in the OR. Continue IV fluid therapy continue to monitor okay to utilize full liquid diet. Pain control with p.o. analgesics and IV opioids-morphine. Antiemetics available as needed. Monitor procalcitonin a nd leukocytosis ICD Code: N20.1 - Calculus of ureter SNOMED: 02954316 SHAI TROTTER NP May 15, 2021 10:40
[2021-05-15] MEDS: MORPHINE SULFATE SL PRN (16:45)
[2021-05-15] MEDS ORDERED: TYLENOL #3 PO PRN (18:00)
[2021-05-15] MEDS: ROCEPHIN 1,000 MG in NS 100ML 100 ML IV SCH (20:14)
[2021-05-15] MEDS ORDERED: TRANDATE IV ONE (22:30)
[2021-05-16 00:18] VITALS: BP 163/114
[2021-05-16] MEDS ORDERED: APRESOLINE IV PRN ×2 (00:30)
[2021-05-16] MEDS: MORPHINE SULFATE SL PRN (01:16)
--- NOTE | 2021-05-16 02:11 | NUR ---
PTS BP WAS 188/112 AND 10 MG IV HYDRALAZINE WAS GIVEN. BP WAS REASSESSED 30 MINUTES LATER AND WAS 118/112. DR DOSS WAS NOTIFIED AND AN ORDER FOR LABETALOL 20 MG IV WAS GIVEN. BP WAS REASSESSED AND WAS 160/119. DR DOSS WAS NOTIFIED AND AN ORDER WAS GIVEN TO UP THE 10 MG HYDRALAZINE TO 20 MG HYDRALAZINE AND WHEN BP WAS REASSESSED IT WAS 144/78.
[2021-05-16 04:25] VITALS: BP 111/80
[2021-05-16 07:35] LABS: BASOPHIL # 0.1 10^3/uL (0.0-0.1); BASOPHIL % 0.4 % (0.0-0.2); EOSINOPHIL % 0.3 % (0.0-5.0); LYMPHOCYTES % 27.4 % (24.0-44.0); MEAN CORP HGB 31.9 pg (26-34); MONOCYTES # 1.2 10^3/uL (0.3-0.8); MONOCYTES % 9.4 % (5.0-12.0); NEUTROPHIL # 7.8 10^3/uL (1.8-7.7); NEUTROPHILS % 62.5 % (41.0-85.0); PLATELET COUNT 309 10^3/uL (150-400)
[2021-05-16 07:51] LABS: CALCIUM 8.8 mg/dL (8.4-10.5); CARBON DIOXIDE 28.6 mmol/L (20.0-32)
[2021-05-16 08:09] VITALS: BP 174/107
[2021-05-16 08:11] VITALS: BP 149/110
[2021-05-16 08:16] VITALS: BP 155/96
[2021-05-16] MEDS ORDERED: Acetaminophen With Codeine PO (08:26)
[2021-05-16] MEDS ORDERED: CEFD300C2 PO (08:26)
--- NOTE | 2021-05-16 08:32 | PRM.DC ---
Discharge Summary Date of Discharge: May 16, 2021 Time of Request to Discharge: 08:29 Reason for Visit: Right flank pain Hospital Course 45-year-old male presented to ED initially with right-sided severe CVA tenderness noncontrast CT revealed a 8 mm stone in the right lower ureter. Consultation to urology for cystoscopy, Stent placed unable to retrieve subsequent lithotripsy this a.m. completed. Trending up leukocytosis as well as mild elevation in creatinine for decrease in renal function continue IV fluid therapy and antimicrobial therapy. Likely DC in a.m. Problems: (1) DAMIÁN (acute kidney injury) Status: Acute Assessment & Plan: Unable to glean any chronic renal data. Increase in creatinine to 1.7 today continue IV fluid therapy avoid nephrotoxic agents continue to monitor renal function. Likely DC in a.m. if renal function trending or normalizing. ICD Code: N17.9 - Acute kidney failure, unspecified SNOMED: 8667559, [id number] (2) Right ureteral stone Status: Acute Assessment & Plan: Consultation to urology much appreciated failed cystoscopy with stent placement and subsequent lithotripsy for disintegration of calculus complete. Continue antimicrobial therapy including ceftriaxone patient did receive 1 dose of Levaquin in the OR. Continue IV fluid therapy continue to monitor okay to utilize full liquid diet. Pain control with p.o. analgesics and IV opioids-morphine. Antiemetics available as needed. Monitor procalcitonin and leukocytosis ICD Code: N20.1 - Calculus of ureter SNOMED: 98429520 Additional Comments 45-year-old male with history of kidney stones presenting with severe right flank pain. Work-up in the emergency room patient was found to have large right ureter stone. Also was found to have elevated creatinine. Urologist consulted. Start IV fluids and IV antibiotic. Patient is being admitted hospital for further management. General: Alert, Oriented X3, Cooperative HEENT: Atraumatic, PERRLA, EOMI Neck: Supple, No JVD, No thyromegaly Lungs: Clear to auscultation, Normal air movement Heart: Regular rate, Normal S1, Normal S2 Abdomen: Normal bowel sounds, Soft, No tenderness, Other (rt flank pain) Extremities: No clubbing, No cyanosis, No edema Skin: No rashes, No breakdown Neuro: Normal gait, Normal speech Psych/Mental Status: Mental status NL Scheduled Cefdinir (Cefdinir), 1 CAP PO BID Scheduled PRN [Acetaminophen With Codeine], 1 EACH PO Q6H PRN for PAIN 4 - 6 Sepsis Evaluation @ Discharge Vital Sign - Last 24 Hours 05/14/21 05/14/21 05/14/21 05/14/21 10:54 11:23 16:21 19:10 Temp 98.2 97.6 Pulse 69 75 Resp 17 18 B/P (MAP) 151/93 (112) 157/104 (121) Pulse Ox 95 97 O2 Delivery Room Air Room Air 05/14/21 05/15/21 05/15/21 05/15/21 20:00 00:01 06:55 09:36 Temp 98.3 97.7 98.3 98.2 Pulse 88 80 76 96 Resp 16 16 16 16 B/P (MAP) 183/107 (132) 147/95 (112) 136/95 (109) 140/106 (117) Pulse Ox 93 94 95 95 O2 Delivery Non-Rebreather O2 Flow Rate 5 05/15/21 05/15/21 05/15/21 05/15/21 09:36 09:41 09:46 09:51 Pulse 88 79 82 Resp 16 16 16 B/P (MAP) 140/106 (117) 136/96 (109) 140/98 (112) Pulse Ox 95 95 95 O2 Delivery Nasal Canula Nasal Canula Nasal Canula O2 Flow Rate 5 2 2 1 05/15/21 05/15/21 05/15/21 05/15/21 09:56 10:01 10:06 10:06 Temp 97.5 Pulse 79 78 80 Resp 16 16 16 B/P (MAP) 145/95 (112) 151/101 (118) 147/100 (116) Pulse Ox 95 95 95 O2 Delivery Nasal Canula Nasal Canula Nasal Canula O2 Flow Rate 1 1 1 1 Intake and Output 05/15/21 07:00 Intake Total 1550 ml Output Total 2750 ml Balance -1200 ml Laboratory Tests Test 05/13/21 17:26 05/13/21 17:40 05/14/21 05:13 05/15/21 05:30 Urine Collection Type UNKNOWN Urine Color YELLOW Urine Appearance CLEAR Urine Bilirubin NEGATIVE Urine Ketones NEGATIVE Urine Specific [place] >=1.030 Urine pH 5.5 Urine Protein 30 mg/dL Urine Urobilinogen 0.2 E.U./dL Urine Nitrate NEGATIVE Urine Leukocyte Esterase NEGATIVE Urine Glucose (Auto)(UA) NEGATIVE Urine Blood TRACE-INTACT Urine RBC 0-2 RBC/HPF Urine WBC 0-2 WBC/HPF Urine Squamous Epithelial Cells FEW #/HPF Urine Bacteria FEW Urine Comment COMMENT: White Blood Count 16.0 10^3/uL 13.6 10^3/uL 15.5 10^3/uL Red Blood Count 5.31 10^6/uL 5.19 10^6/uL 4.92 10^6/uL Hemoglobin 16.5 g/dL 16.5 g/dL 15.6 g/dL Hematocrit 48.6 % 47.9 % 45.7 % Mean Corpuscular Volume 91.5 fL 92.3 fL 92.9 fL Mean Corpuscular Hemoglobin 31.1 pg 31.8 pg 31.7 pg Mean Corpuscular Hemoglobin Concent 34.0 g/dL 34.4 g/dL 34.1 g/dL Red Cell Distribution Width 12.9 % 12.9 % 12.9 % Platelet Count 393 10^3/uL 350 10^3/uL 339 10^3/uL Mean Platelet Volume 8.8 fL 9.1 fL 8.9 fL Neutrophils (%) (Auto) 76.0 % 73.3 % 67.7 % Lymphocytes (%) (Auto) 15.3 % 15.4 % 22.7 % Monocytes (%) (Auto) 7.0 % 10.1 % 9.1 % Neutrophils # (Auto) 12.2 10^3/uL 9.9 10^3/uL 10.5 10^3/uL Lymphocytes # (Auto) 2.44 10^3/uL1 2.08 10^3/uL1 3.51 10^3/uL1 Monocytes # (Auto) 1.1 10^3/uL 1.4 10^3/uL 1.4 10^3/uL Absolute Immature Granulocyte (auto 0.06 10^3 u/L 0.05 10^3 u/L 0.03 10^3 u/L Absolute Eosinophils (auto) 0.2 10^3/uL 0.1 10^3/uL 0.0 10^3/uL Immature Granulocytes % 0.40 % 0.40 % 0.20 % Eosinophils % 0.9 % 0.8 % 0.2 % Basophils % 0.4 % 0.4 % 0.3 % Basophils # 0.1 10^3/uL 0.1 10^3/uL 0.0 10^3/uL Prothrombin Time 10.9 SEC Prothrombin Time INR (Non-Therap) 1.0 Activated Partial Thromboplast Time 27.2 SEC Sodium Level 137 mmol/L 137 mmol/L Potassium Level 3.9 mmol/L 4.2 mmol/L Chloride Level 100.0 mmol/L 102.0 mmol/L Carbon Dioxide Level 28.3 mmol/L 28.7 mmol/L Anion Gap 12.6 10.5 Blood Urea Nitrogen 17 mg/dL 18 mg/dL Creatinine 1.64 mg/dL 1.73 mg/dL Estimated GFR () 55.8 52.4 Est GFR (CKD-EPI)(Non-Afr Somali) 46.1 43.3 BUN/Creatinine Ratio 10.0 10.0 Glucose Level 176 mg/dL 108 mg/dL Calcium Level 9.5 mg/dL 9.2 mg/dL Total Bilirubin 0.5 mg/dL Aspartate Amino Transf (AST/SGOT) 36 U/L Alanine Aminotransferase (ALT/SGPT) 79 U/L Alkaline Phosphatase 114 U/L Total Protein 8.6 g/dL Albumin 4.6 g/dL Globulin 4.0 Albumin/Globulin Ratio 1.150 Amylase Level 58 U/L Lipase 67 U/L Helicobacter pylori Screen POSITIVE Procalcitonin < 0.05 ng/mL Current Medications Medications (Trade) Dose Ordered Sig/Karo PRN Reason Start Time Stop Time Status Last Admin Ceftriaxone Sodium 1000 mg/ Sodium Chloride 100 ml @ 100 mls/hr Q24HRS 05/13/21 19:30 06/12/21 19:29 05/14/21 19:47 Hydralazine HCl (Apresoline) 10 mg Q4HR PRN HYPERTENSION 05/14/21 09:00 06/13/21 08:59 Morphine Sulfate (Morphine Sulfate) 2 mg Q4H PRN PAIN 7 - 10 05/13/21 20:30 06/12/21 20:29 05/13/21 22:13 Morphine Sulfate (Morphine Sulfate) 4 mg Q4H PRN PAIN 7 - 10 05/13/21 22:30 06/12/21 22:29 05/15/21 05:34 Ondansetron HCl (Zofran) 4 mg Q4H PRN NAUSEA / VOMITING 05/13/21 20:30 06/12/21 20:29 05/15/21 00:25 Sodium Chloride 1,000 ml @ 125 mls/hr Q8H 05/13/21 20:30 06/12/21 20:29 05/14/21 14:45 Course Sepsis Screening Results: Posi: NEGATIVE Sepsis Qualifier/Stage: NO DEFINITE RISK Vitals & review Data Vital Sign - Last 24 Hours 05/14/21 05/14/21 05/14/21 05/14/21 10:54 11:23 16:21 19:10 Temp 98.2 97.6 Pulse 69 75 Resp 17 18 B/P (MAP) 151/93 (112) 157/104 (121) Pulse Ox 95 97 O2 Delivery Room Air Room Air 05/14/21 05/15/21 05/15/21 05/15/21 20:00 00:01 06:55 09:36 Temp 98.3 97.7 98.3 98.2 Pulse 88 80 76 96 Resp 16 16 16 16 B/P (MAP) 183/107 (132) 147/95 (112) 136/95 (109) 140/106 (117) Pulse Ox 93 94 95 95 O2 Delivery Non-Rebreather O2 Flow Rate 5 05/15/21 05/15/21 05/15/21 05/15/21 09:36 09:41 09:46 09:51 Pulse 88 79 82 Resp 16 16 16 B/P (MAP) 140/106 (117) 136/96 (109) 140/98 (112) Pulse Ox 95 95 95 O2 Delivery Nasal Canula Nasal Canula Nasal Canula O2 Flow Rate 5 2 2 1 05/15/21 05/15/21 05/15/21 05/15/21 09:56 10:01 10:06 10:06 Temp 97.5 Pulse 79 78 80 Resp 16 16 16 B/P (MAP) 145/95 (112) 151/101 (118) 147/100 (116) Pulse Ox 95 95 95 O2 Delivery Nasal Canula Nasal Canula Nasal Canula O2 Flow Rate 1 1 1 1 Intake and Output 05/15/21 07:00 Intake Total 1550 ml Output Total 2750 ml Balance -1200 ml Laboratory Tests Test 05/13/21 17:26 05/13/21 17:40 05/14/21 05:13 05/15/21 05:30 Urine Collection Type UNKNOWN Urine Color YELLOW Urine Appearance CLEAR Urine Bilirubin NEGATIVE Urine Ketones NEGATIVE Urine Specific [place] >=1.030 Urine pH 5.5 Urine Protein 30 mg/dL Urine Urobilinogen 0.2 E.U./dL Urine Nitrate NEGATIVE Urine Leukocyte Esterase NEGATIVE Urine Glucose (Auto)(UA) NEGATIVE Urine Blood TRACE-INTACT Urine RBC 0-2 RBC/HPF Urine WBC 0-2 WBC/HPF Urine Squamous Epithelial Cells FEW #/HPF Urine Bacteria FEW Urine Comment COMMENT: White Blood Count 16.0 10^3/uL 13.6 10^3/uL 15.5 10^3/uL Red Blood Count 5.31 10^6/uL 5.19 10^6/uL 4.92 10^6/uL Hemoglobin 16.5 g/dL 16.5 g/dL 15.6 g/dL Hematocrit 48.6 % 47.9 % 45.7 % Mean Corpuscular Volume 91.5 fL 92.3 fL 92.9 fL Mean Corpuscular Hemoglobin 31.1 pg 31.8 pg 31.7 pg Mean Corpuscular Hemoglobin Concent 34.0 g/dL 34.4 g/dL 34.1 g/dL Red Cell Distribution Width 12.9 % 12.9 % 12.9 % Platelet Count 393 10^3/uL 350 10^3/uL 339 10^3/uL Mean Platelet Volume 8.8 fL 9.1 fL 8.9 fL Neutrophils (%) (Auto) 76.0 % 73.3 % 67.7 % Lymphocytes (%) (Auto) 15.3 % 15.4 % 22.7 % Monocytes (%) (Auto) 7.0 % 10.1 % 9.1 % Neutrophils # (Auto) 12.2 10^3/uL 9.9 10^3/uL 10.5 10^3/uL Lymphocytes # (Auto) 2.44 10^3/uL1 2.08 10^3/uL1 3.51 10^3/uL1 Monocytes # (Auto) 1.1 10^3/uL 1.4 10^3/uL 1.4 10^3/uL Absolute Immature Granulocyte (auto 0.06 10^3 u/L 0.05 10^3 u/L 0.03 10^3 u/L Absolute Eosinophils (auto) 0.2 10^3/uL 0.1 10^3/uL 0.0 10^3/uL Immature Granulocytes % 0.40 % 0.40 % 0.20 % Eosinophils % 0.9 % 0.8 % 0.2 % Basophils % 0.4 % 0.4 % 0.3 % Basophils # 0.1 10^3/uL 0.1 10^3/uL 0.0 10^3/uL Prothrombin Time 10.9 SEC Prothrombin Time INR (Non-Therap) 1.0 Activated Partial Thromboplast Time 27.2 SEC Sodium Level 137 mmol/L 137 mmol/L Potassium Level 3.9 mmol/L 4.2 mmol/L Chloride Level 100.0 mmol/L 102.0 mmol/L Carbon Dioxide Level 28.3 mmol/L 28.7 mmol/L Anion Gap 12.6 10.5 Blood Urea Nitrogen 17 mg/dL 18 mg/dL Creatinine 1.64 mg/dL 1.73 mg/dL Estimated GFR () 55.8 52.4 Est GFR (CKD-EPI)(Non-Afr Somali) 46.1 43.3 BUN/Creatinine Ratio 10.0 10.0 Glucose Level 176 mg/dL 108 mg/dL Calcium Level 9.5 mg/dL 9.2 mg/dL Total Bilirubin 0.5 mg/dL Aspartate Amino Transf (AST/SGOT) 36 U/L Alanine Aminotransferase (ALT/SGPT) 79 U/L Alkaline Phosphatase 114 U/L Total Protein 8.6 g/dL Albumin 4.6 g/dL Globulin 4.0 Albumin/Globulin Ratio 1.150 Amylase Level 58 U/L Lipase 67 U/L Helicobacter pylori Screen POSITIVE Procalcitonin < 0.05 ng/mL Current Medications Medications (Trade) Dose Ordered Sig/Karo PRN Reason Start Time Stop Time Status Last Admin Ceftriaxone Sodium 1000 mg/ Sodium Chloride 100 ml @ 100 mls/hr Q24HRS 05/13/21 19:30 06/12/21 19:29 05/14/21 19:47 Hydralazine HCl (Apresoline) 10 mg Q4HR PRN HYPERTENSION 05/14/21 09:00 06/13/21 08:59 Morphine Sulfate (Morphine Sulfate) 2 mg Q4H PRN PAIN 7 - 10 05/13/21 20:30 06/12/21 20:29 9/22/21 22:13 Morphine Sulfate (Morphine Sulfate) 4 mg Q4H PRN PAIN 7 - 10 05/13/21 22:30 06/12/21 22:29 05/15/21 05:34 Ondansetron HCl (Zofran) 4 mg Q4H PRN NAUSEA / VOMITING 05/13/21 20:30 06/12/21 20:29 05/15/21 00:25 Sodium Chloride 1,000 ml @ 125 mls/hr Q8H 05/13/21 20:30 06/12/21 20:29 05/14/21 14:45 LEVEL 1 SEPSIS INFECTION CRITE: ABX Therapy, Recent Invasive Procedure LEVEL 2-SIRS (LIST ALL THAT AP: [id number] Cardiovascular Evidence: Not Assessed or None Hematologic Evidence: None/Not assessed Hepatic Evidence: None/Not assessed Metabolic Evidence: None/Not assessed Neurological Evidence: None/Not assessed Respiratory Evidence: None/Not assessed Renal Evidence: None/Not assessed O2 Sat by Pulse Oximetry: 95 Oxygen Flow Rate: 1 Plan Assessment 45-year-old male presented to ED initially with right-sided severe CVA tenderness noncontrast CT revealed a 8 mm stone in the right lower ureter. Consultation to urology for cystoscopy, Stent placed unable to retrieve subsequent lithotripsy this a.m. completed. Trending up leukocytosis as well as mild elevation in creatinine for decrease in renal function continue IV fluid therapy and antimicrobial therapy. Likely DC in a.m. Problems: (1) DAMIÁN (acute kidney injury) Status: Acute- resolved Assessment & Plan: Unable to glean any chronic renal data. Increase in creatinine to 1.7 today continue IV fluid therapy avoid nephrotoxic agents continue to monitor renal function. Likely DC in a.m. if renal function trending or normalizing. ICD Code: N17.9 - Acute kidney failure, unspecified SNOMED: 1337580, [id number] (2) Right ureteral stone Status: Acute Assessment & Plan: Consultation to urology much appreciated failed cystoscopy with stent placement and subsequent lithotripsy for disintegration of calculus complete. Continue antimicrobial therapy including ceftriaxone patient did receive 1 dose of Levaquin in the OR. Continue IV fluid therapy continue to monitor okay to utilize full liquid diet. Pain control with p.o. analgesics and IV opioids-morphine. Antiemetics available as needed. Monitor procalcitonin and leukocytosis ICD Code: N20.1 - Calculus of ureter SNOMED: [id number] UTI Acute 2/2 calculous continue cefdinir x10 days, 300 mg bid, t3 prn analgesic po. FU with grabato Discharge Disposition: SHAI Galindo [employer]ACULT[employer] SUPPORT COORDINATOR May 16, 2021 08:32
--- NOTE | 2021-05-16 11:26 | NUR ---
DC IV DCD. TIP INTACT. DC INSTRUCTIONS GIVEN. PT VOICED UNDERSTANDING AND SIGNED WRITTEN OF SAME.
[2021-05-16 11:50] VITALS: BP 155/96
--- NOTE | 2021-05-16 11:50 | NUR ---
DC DCD HOME IN STABLE CONDITION VIA AMB TO PRIVATE AUTO ACCOMPANIED BY RN
[2021-05-21] MEDS ORDERED: OMEP20CA19 PO (17:10)
[2021-05-21] MEDS ORDERED: IBUP-1131 PO (17:10)
[2021-05-27] MEDS ORDERED: TAMS-14 PO (10:06)
[2021-05-27] MEDS ORDERED: TRAM50TA PO (10:06)
[2021-05-27] MEDS ORDERED: CIPR500T86 PO (10:06)
== END 2021-05-16 11:26 | disposition home or self-care (01) | DRG 660 ==
LOC: ER 17:17 → EDBEDREQTM 20:12 → EDBEDREQ 20:12 → MS 20:12 → OBSVTOIN 05-14 09:21
PROVIDERS: ADMIT Internal Medicine; ATTEND Internal Medicine
PROC: 0TJB8ZZ Inspection of Bladder, Via Natural or Artificial Opening Endoscopic (ICD-10-PCS; 2021-05-14)
PROC: 0T768DZ Dilation of Right Ureter with Intraluminal Device, Via Natural or Artificial Opening Endoscopic (ICD-10-PCS; principal; 2021-05-14 07:30)
DX: N17.9 Acute kidney failure, unspecified (principal); N20.1 Calculus of ureter; N39.0 Urinary tract infection, site not specified; R03.0 Elevated blood-pressure reading, without diagnosis of hypertension; Z91.030 Bee allergy status; Z88.8 Allergy status to other drugs, medicaments and biological substances; Z79.1 Long term (current) use of non-steroidal anti-inflammatories (NSAID)
CPT/HCPCS: 36415; 71045; 74176; 74420; 76000; 80048; 80053; 81001; 82150; 83690; 84145; 85025; 85610; 85730; 86677; 87086; 99285; C1769; G0378; J0330; J0360; J0696; J1100; J1170; J1885; J1956; J2001; J2270; J2405; J2550; J3010; J3490; J7030; Q9966; C1758; C1894; C2617

== ENCOUNTER → 2021-05-27 | Day surgery (SDC) | payer OTHER ==
[2021-05-20 11:21] LABS: BASOPHIL # 0.1 10^3/uL (0.0-0.1); BASOPHIL % 0.5 % (0.0-0.2); EOSINOPHIL # 0.3 10^3/uL (0.0-0.2); EOSINOPHIL % 3.1 % (0.0-5.0); LYMPHOCYTES # 2.27 10^3/uL1 (1.0-4.8); LYMPHOCYTES % 22.3 % (24.0-44.0); MEAN CORP HGB 31.2 pg (26-34); MONOCYTES # 0.9 10^3/uL (0.3-0.8); MONOCYTES % 8.8 % (5.0-12.0); NEUTROPHIL # 6.6 10^3/uL (1.8-7.7); NEUTROPHILS % 64.6 % (41.0-85.0); RED CELL DISTRIBUTION WIDTH 12.9 % (11.5-14.5)
[2021-05-20 11:37] LABS: CALCIUM 9.5 mg/dL (8.4-10.5); CARBON DIOXIDE 29.7 mmol/L (20.0-32)
[~2021-05-27] VITALS: Ht 190.5 cm; Wt 134.3 kg
[~2021-05-27] MED LIST: Acetaminophen With Codeine PO; CEFD300C2 PO; CIPR500T86 PO; DECADRON ONE; DIPRIVAN IV ONE; EPHEDRINE SULFATE ONE; IBUP-1131 PO; LACTATED RINGERS 1,000 ML IV SCH; LEVAQUIN 100 ML IV ONE; LOPRESSER ONE; NS 3000ML IRR IR ONE; OMEP20CA19 PO; QUELICIN ONE; ROCURONIUM BROMIDE IV ONE; SODIUM CHLORIDE IRR BOTTLE IR ONE; SUBLIMAZE ONE; TAMS-14 PO; TORADOL ONE; TRAM50TA PO; XYLOCAINE 2% 5ML VIAL ONE; ZOFRAN ONE
[2021-05-27 08:14] LABS: BASOPHIL % 0.4 % (0.0-0.2); EOSINOPHIL # 0.5 10^3/uL (0.0-0.2); EOSINOPHIL % 4.3 % (0.0-5.0); LYMPHOCYTES # 2.68 10^3/uL1 (1.0-4.8); LYMPHOCYTES % 25.6 % (24.0-44.0); MEAN CORP HGB 31.3 pg (26-34); MONOCYTES # 0.9 10^3/uL (0.3-0.8); MONOCYTES % 8.4 % (5.0-12.0); NEUTROPHIL # 6.4 10^3/uL (1.8-7.7); NEUTROPHILS % 60.7 % (41.0-85.0); RED CELL DISTRIBUTION WIDTH 12.8 % (11.5-14.5)
[2021-05-27 08:17] VITALS: BP 131/89
[2021-05-27 08:25] LABS: CARBON DIOXIDE 26.2 mmol/L (20.0-32)
[2021-05-27 10:01] VITALS: BP 150/108
--- NOTE | 2021-05-27 10:24 | DIREP ---
PROCEDURE:XRAY FLUOROSCOPY COMPARISON:None. INDICATIONS:RT STENT REMOVAL, 13 IMAGES, 112.6 mGy, 170.9 SEC FLUORO TECHNIQUE:13 images. 170.9 seconds of fluoroscopy time. FINDINGS:Images depict removal of right ureteral stent. CONCLUSION:Right ureteral stent removal. Dictated by: Arian Ritchie M.D. on 05/27/2021 at 10:21 AM
--- NOTE | 2021-05-27 10:25 | OPH ---
DATE OF SURGERY: 05/27/2021 DICTATOR NAME: Terry Gutierrez MD PREOPERATIVE DIAGNOSES: Calculus lower mid ureter, status post extracorporeal shock wave lithotripsy with indwelling stent. FINAL DIAGNOSES: Calculus lower mid ureter, status post extracorporeal shock wave lithotripsy with indwelling stent. PROCEDURE: Cystoscopy, removal of right ureteral stent, ureteroscopy with basket stone extraction of the residual stones in the lower mid ureter. DESCRIPTION OF PROCEDURE: The patient was brought to the cystoscopy room, was put in supine position on the cystoscopy table. After the patient was given a satisfactory and adequate LMA general anesthesia, the patient was placed in lithotomy position. Genitalia were then prepped and draped aseptically in the usual manner. First, a 23-Maldivian cystoscope was inserted per urethra up to the bladder. With the use of the right angle lens, the bladder was visualized. There was some congestion noted, but no tumor, no calculi, no ulcerations seen. There was presence of stent in the right ureteral orifice and this was removed and replaced with a Glidewire. After that, the cystoscope was removed and after that a 7-Maldivian semirigid ureteroscope was gently inserted per urethra up to the bladder, all the way to the upper mid ureter and there was some residual stone noted and the basket stone extraction was then performed. After the stone extraction, the ureteroscope was removed and the Glidewire was removed and a cystoscope was reinserted into the bladder and the bladder was emptied with fluid. Procedure was terminated. The instrument was removed. The patient was then awakened, was transferred to the recovery room in stable condition. Terry Gutierrez MD DR: SHAHZAD TID: [id number] RECEIPT: [id number]
[2021-05-27 10:55] VITALS: BP 140/99
[2021-05-27 11:10] VITALS: BP 162/100
[2021-05-27 11:25] VITALS: BP 155/104
[2021-05-27 11:40] VITALS: BP 143/95
== END | disposition home or self-care (01) ==
LOC: SDC 09:10
PROVIDERS: ATTEND Urology
DX: N20.1 Calculus of ureter (principal); F41.9 Anxiety disorder, unspecified; F32.9 Major depressive disorder, single episode, unspecified; G43.909 Migraine, unspecified, not intractable, without status migrainosus; Z98.890 Other specified postprocedural states; Z79.899 Other long term (current) drug therapy
CPT/HCPCS: 36415 ×2; 52320; 80048 ×2; 82360; 85025 ×2; A4217 ×2; J0330; J1100; J1885; J1956; J2001; J2405; J3010; J3490 ×3; 76000; C1769; C1894